=== PATIENT | female | born 1985 | race Caucasian/White ===

== ENCOUNTER 2016-10-11 17:10 | Outpatient (CLI) | payer BC ==
[2016-10-21] MEDS ORDERED: SYNTHROID125 MCG PO (13:09)
[2016-10-21] MEDS ORDERED: COLACE-DPS100 MG PO (13:09)
[2016-10-21] MEDS ORDERED: MOTRIN-DPS800 MG PO (13:09)
[2016-10-21] MEDS ORDERED: PRENATAL VIT1 TAB PO (13:09)
[2016-10-21] MEDS ORDERED: NIPPLECREAM TP (13:10)
[2016-10-21] MEDS ORDERED: TYLENOL #3 DPS1 TAB PO (13:10)
== END 2016-10-11 19:20 | disposition home or self-care (01) ==
LOC: BC 17:10 → 2LDRP 17:10 → BC 19:20
DX: O99.89 Other specified diseases and conditions complicating pregnancy, childbirth and the puerperium (principal); R03.0 Elevated blood-pressure reading, without diagnosis of hypertension; Z3A.39 39 weeks gestation of pregnancy

== ENCOUNTER 2016-10-18 06:26 | Inpatient (IN) | payer BC ==
--- NOTE | ~2016-10-18 | HP ---
ADMIT: 10/18/2016 RM/LOC: 227 [facility] MR#: [id number] [id number] [place], [place] [address] RICKEY SERRANO [address] [place] [address] History and Physical SEX: F AGE: 31 : 1985 DATE OF SERVICE: 10/18/2016 REASON FOR ADMISSION: Induction of labor. HISTORY OF PRESENT ILLNESS: The patient is a 31-year-old, 1, para 0, who presents to Labor and Delivery at 39 and 1/7th weeks' gestation for scheduled induction of labor at term secondary to gestational diabetes. The patient's has been complicated by hypothyroidism as well as gestational diabetes, which has been controlled with glyburide. Due to this, the patient's labor was induced at 39 weeks. At the time of admission, patient denied any vaginal bleeding or loss of fluid and noted occasional contractions. LABORATORY DATA: Blood type A positive, antibody screen negative, RPR nonreactive, HIV negative, gonorrhea and chlamydia negative, hep B surface antigen negative, rubella immune, elevated 1 hour and 3 hour glucose tolerance test, and group B strep negative. PAST MEDICAL HISTORY: Hypothyroidism. PAST SURGICAL HISTORY: Tonsillectomy in 1992. CURRENT MEDICATIONS: 1. Glyburide 2.5 mg nightly. 2. Synthroid 125 mcg daily. 3. vitamin daily. ALLERGIES: NO KNOWN MEDICAL ALLERGIES. SOCIAL HISTORY: The patient is . She denies any alcohol, tobacco, or drug use. FAMILY HISTORY: Father and paternal grandfather with diabetes. Maternal grandmother with heart disease. PHYSICAL EXAMINATION: VITAL SIGNS: On admission, vital signs are stable. The patient is afebrile. GENERAL: The patient is alert and oriented, no acute distress. HEART: Regular rate and rhythm without murmurs, gallops, or rubs. LUNGS: Clear to auscultation bilaterally. ABDOMEN: Soft, nontender, gravid. EXTREMITIES: Trace edema. No calf tenderness. heart tones are in the 150s with moderate variability and accelerations ADMIT: 10/18/2016 RM/LOC: 227 [facility] MR#: [id number] [address] [address] RICKEY SERRANO [address] [place] [address] History and Physical SEX: F AGE: 31 : 1985 present. Contractions are irregular on admission. Cervix 4 cm dilated, 80% effaced, and -1 station. ASSESSMENT: 1. 31-year-old, 1, para 0, at 39 and 1/7th weeks' gestation. 2. Gestational diabetes, type A2. PLAN: 1. To induce labor with Pitocin and we will anticipate spontaneous vaginal delivery. We will also begin diabetic labor protocol for blood sugar control during labor. 2. Group B Strep negative. Mya Richardson MD/ francisca JOB #: [id number] CC: Mya Richardson, Attending Physician NO FAMILY PHYSICIAN, Family Physician
--- NOTE | ~2016-10-18 | FD ---
ADMIT: 10/18/2016 RM/LOC: 227 [facility] MR#: [id number] [address] [address] RICKEY SERRANO [address] [address] Final Diagnosis SEX: F AGE: 31 : 1985 ADMISSION DATE: 10/18/2016 DISCHARGE DATE: 10/20/2016 FINAL DIAGNOSIS: 1. Intrauterine at term. 2. Gestational diabetes, type A2. 3. hemorrhage. PROCEDURE: Spontaneous vaginal delivery. Mya Richardson MD/ luis angel JOB #: [id number] CC: Mya Richardson MD, Attending Physician FAMILY PHYSICIAN, Family Physician
[2016-10-21] MEDS ORDERED: MOTRIN-DPS800 MG PO (13:09)
[2016-10-21] MEDS ORDERED: PRENATAL VIT1 TAB PO (13:09)
[2016-10-21] MEDS ORDERED: COLACE-DPS100 MG PO (13:09)
[2016-10-21] MEDS ORDERED: SYNTHROID125 MCG PO (13:09)
[2016-10-21] MEDS ORDERED: NIPPLECREAM TP (13:10)
[2016-10-21] MEDS ORDERED: TYLENOL #3 DPS1 TAB PO (13:10)
--- NOTE | 2016-11-15 09:14 | OR ---
ADMIT: 10/18/2016 RM/LOC: 227 [facility] MR#: [id number] [address] [place], [place] [address] RICKYE SERRANO [address] [place] [id number] Operative/Delivery Room Report SEX: F AGE: 31 : 1985 SURGERY DATE: 10/18/2016 SURGEON: Mya Richradson MD PROCEDURE: Spontaneous vaginal delivery with repair of extensive third-degree laceration which extended bilaterally into the bilateral vaginal sulcus. FINDINGS: Live born male , scores 8 at 1 minute, 9 at 5 minutes, weight 8 pounds 7 ounces. ESTIMATED BLOOD LOSS: 2500 mL. ANESTHESIA: Epidural. COMPLICATIONS: hemorrhage with massive hemorrhage protocol activated. The hemorrhage was noted to be from the vaginal laceration. INDICATIONS FOR PROCEDURE: The patient is a 31-year-old, 1 para 0, who presented to Labor and Delivery at 39-1/7th weeks' gestation for scheduled induction of labor at term secondary to gestational diabetes type A2. Blood sugars have been well controlled with medication. The patient's had otherwise been complicated by hypothyroidism. The patient was noted be 4 cm dilated on admission. She had Pitocin induction of labor and artificial rupture of membranes performed. The patient progressed to completely dilated. The patient pushed for approximately 2 hours. At that point, she was noted to bring the 's vertex to the perineum. DESCRIPTION OF PROCEDURE: The patient was noted to be complete and pushing with the 's vertex at the perineum. The patient pushed and the 's vertex delivered in the JONI position over midline. She continued to push. The anterior shoulder delivered, the posterior shoulder followed, and the remainder of the delivered without difficulty as well. There was a nuchal cord x1 which was relieved without difficulty. The infant was dried and handed off to the mother's abdomen where nursing personnel were in attendance. Twenty units of Pitocin were placed in IV bag to firm the uterus. The cord was clamped and cut. The placenta then delivered intact spontaneously. At this point, inspection of the vagina was performed and the patient was noted to be bleeding heavily from the vaginal lacerations which extended bilaterally up into the vaginal sulcus. The cervix appeared free of lesions. At this point, the patient was noted to be uncomfortable. The patient had 1% lidocaine injected locally as well as epidural for pain control but still continued to have significant pain. At this point, it was noted that she was bleeding fairly heavily from her vaginal laceration and adequate visualization was not able to be obtained. At this point, anesthesia was called for to dose for epidural and operating room surgical technologist was called for to help with visualization. At this point, with improved visualization, the bilateral sulcal tears were able to be repaired in a running locked fashion. This occurred bilaterally. There was also noted to be a midline second-degree ADMIT: 10/18/2016 RM/LOC: 227 [facility] MR#: [id number] [address] [place] [id number] RICKEY SERRANO [address] [place] [address] Operative/Delivery Room Report SEX: F AGE: 31 : 1985 laceration which was repaired in the usual fashion using 2-0 Vicryl. The patient did continue to bleed heavily from her vaginal lacerations and several additional [id number] stitches were used for hemostasis. The patient became symptomatic with blood pressures that were decreasing and increasing pulse as well as complaining of feeling lightheaded. Due to this, massive hemorrhage protocol was initiated when it appeared that the blood loss was approximately 2000 mL. The patient then received 2 units of packed red blood cells. At this point, it was noted that the vaginal lacerations were noted to be hemostatic. Vaginal packing was then placed. The vaginal packing was placed in the vagina and a Castro catheter was placed. The vagina appeared to remain hemostatic. The patient did tolerate the procedure well. The patient and her infant recovered in the room in stable condition. Mya Richardson MD/ francisca JOB #: [id number] CC: Mya Richardson, Attending Physician NO FAMILY PHYSICIAN, Family Physician
== END 2016-10-20 16:10 | disposition home or self-care (01) | DRG 774 ==
LOC: BC 06:26 → 2LDRP 06:26 → BC 10-24 08:00
PROVIDERS: ADMIT Obstetrics & Gynecology
PROC: 3E033VJ Introduction of Other Hormone into Peripheral Vein, Percutaneous Approach (ICD-10-PCS; principal; 2016-10-18)
PROC: 0KQM0ZZ Repair Perineum Muscle, Open Approach (ICD-10-PCS; principal; 2016-10-18)
PROC: 10907ZC Drainage of Amniotic Fluid, Therapeutic from Products of Conception, Via Natural or Artificial Opening (ICD-10-PCS; principal; 2016-10-18)
PROC: 30233N1 Transfusion of Nonautologous Red Blood Cells into Peripheral Vein, Percutaneous Approach (ICD-10-PCS; principal; 2016-10-18)
PROC: 10E0XZZ Delivery of Products of Conception, External Approach (ICD-10-PCS; principal; 2016-10-18)
DX: O24.425 Gestational diabetes mellitus in childbirth, controlled by oral hypoglycemic drugs (principal); O72.1 Other immediate postpartum hemorrhage; O69.81X0 Labor and delivery complicated by cord around neck, without compression, not applicable or unspecified; O99.284 Endocrine, nutritional and metabolic diseases complicating childbirth; O70.1 Second degree perineal laceration during delivery; E03.9 Hypothyroidism, unspecified; Z3A.39 39 weeks gestation of pregnancy; Z37.0 Single live birth